=== PATIENT | female | born 1955 | race Caucasian/White ===

== ENCOUNTER 2016-10-11 19:26 | Emergency (ER) | payer OTHER ==
[~2016-10-11] VITALS: Ht 160 cm; Wt 63.0 kg
[~2016-10-11 19:26] MED LIST: ENAL5TAB98; GUAI100S6 PO; TAB-TAB
[2016-10-11 19:34] VITALS: BP 117/82; PULSE 71; RESP 18; TEMP 97.8; O2SAT 100
[2016-10-11] MEDS ORDERED: COQ-50CA2 PO (19:43)
[2016-10-11] MEDS ORDERED: FOLI800T PO (19:43)
[2016-10-11] MEDS ORDERED: TELM1TAB56 PO (19:43)
[2016-10-11] MEDS ORDERED: AMLO5TAB2 PO (19:43)
--- NOTE | 2016-10-11 19:56 | PD ---
HPI Chief Complaint: Bite or Sting Time Seen by Provider: 19:53 Travel History International Travel<30 days: No Contact w/Intl Traveler<30days: No Traveled to known affect area: No History of Present Illness HPI 61-year-old right-hand dominant female present to the ED for evaluation of dog bite to the left elbow just before presentation. Patient states that she was visiting with family members whose dog has new puppies. The dog's never been aggressive in the past. The dog is up-to-date on immunizations. Patient denies numbness, tingling, weakness, limitation of range of motion or loss of strength of the extremity. She is unsure of the date of her last tetanus immunization. [facility] Past Medical History Diminished Hearing: No Hypertension: Yes Immunizations Current: Yes Tetanus Vaccination: > 5 Years Influenza Vaccination: Yes ?: Not Past Surgical History Hysterectomy: Yes Social History Alcohol Use: Yes (SOC) Tobacco Use: No Substance Use: No Allergies-Medications (Allergen,Severity, Reaction): Coded Allergies: Sulfa (Verified Allergy, Intermediate, hives, 10/11/16) Reported Meds & Prescriptions Reported Meds & Active Scripts Active Augmentin (Amoxicillin-Clavulanate) 875-125 mg Tab 875 Mg PO BID not for use in CrCl <30 ml/min. Reported Coq-10 (Coenzyme Q10 (Ubidecarenone)) 50 Mg Cap 1 Tab PO DAILY Folic Acid 800 Mcg Tab 800 Mcg PO DAILY Amlodipine (Amlodipine Besylate) 5 Mg Tab 5 Mg PO DAILY Micardis (Telmisartan) 80 Mg Tab 80 Mg PO DAILY Review of Systems Except as stated in HPI: all other systems reviewed are Neg Physical Exam Narrative GENERAL: Well-nourished, well-developed white female in no acute distress.. SKIN: Focused skin assessment warm/dry. There is a 1.25 cm curvilinear laceration of the posterior aspect of the elbow, just distal to the joint. HEAD: Normocephalic. EYES: No scleral icterus. No injection or drainage. NECK: Supple, trachea midline. No JVD or lymphadenopathy. CARDIOVASCULAR: Regular rate and rhythm without murmurs, gallops, or rubs. RESPIRATORY: Breath sounds equal bilaterally. No accessory muscle use. GASTROINTESTINAL: Abdomen soft, non-tender, nondistended. MUSCULOSKELETAL: No cyanosis, or edema. Focused left upper extremity exam: 2+ radial pulse. Patient retains full, active, painless range of motion. Neurovascularly intact. BACK: Nontender without obvious deformity. No CVA tenderness. Data Data Last Documented VS Orders Tetanus/Diphtheria Tox Adult (Tetanus/Di (10/11/16 20:00) Amoxicil-Clavulanate (Augmentin) (10/11/16 20:00) MDM Medical Decision Making Medical Screen Exam Complete: Yes Emergency Medical Condition: Yes Differential Diagnosis Dog bite versus laceration versus contusion versus need for tetanus prophylaxis versus other Narrative Course 61-year-old right-hand dominant female present to the ED for evaluation of dog bite to the left elbow just before presentation. Patient states that she was visiting with family members whose dog has new puppies. The dog's never been aggressive in the past. The dog is up-to-date on immunizations. Patient denies numbness, tingling, weakness, limitation of range of motion or loss of strength of the extremity. She is unsure of the date of her last tetanus immunization. Vitals reviewed. Physical exam reveals a pleasant white female in no acute distress. There is a 1.25 cm curvilinear laceration of the posterior aspect of the elbow, just distal to the joint. Patient retains full, active, painless range of motion of the extremity. Neurovascularly intact. Patient's tetanus immunization was updated. Wound exploration was performed. Please see my procedure note for details. Patient was prescribed Augmentin 875 twice a day 7 days. First dose administered in the ED. She is instructed to keep the wound clean, dry, covered, take all medication as prescribed, return for worsening of symptoms, otherwise follow up with the primary care provider. She indicated understanding of the instructions and is agreeable to the care plan. The patient is stable and discharged home. Procedures Procedure Narrative Wound exploration: LOCATION: Posterior aspect left forearm, just distal to the joint LENGTH: 1.25 cm NUMBER OF STITCHES/PIERRE: 0 REPAIR: The wound was copiously irrigated and explored without evidence of foreign body, tendon injury or neurovascular injury. The wound was loosely approximated using Mastisol and Steri-Strips. A sterile dressing was applied. The patient was advised to keep the dressing clean and dry. Patient tolerated the procedure well. Diagnosis Primary Impression: Dog bite of arm Qualified Code: S41.152A - Dog bite of arm, left, initial encounter Additional Impression: Need for prophylactic vaccination with tetanus toxoid alone Referrals: Primary Care Physician Patient Instructions: Animal Bite (ED), General Instructions Additional Instructions: Rest, hydrate. Keep the wound clean, dry and covered. You may shower normally. Do not submerge the wound. After bathing pat of wound dry. Allow the wound to air dry for 10-15 minutes. Apply a thin layer of antibiotic ointment and a clean, dry dressing. Take the antibiotics as they are prescribed, even if your symptoms resolved. Utilize [id number] pain medications, as described on the label, as needed. Follow-up with your primary care provider. Return to the ED for any urgent or emergent medical condition. Med/Other Pt SpecificInfo: Prescription(s) given Scripts Amoxicillin-Clavulanate (Augmentin)875-125 mg [id number] Mg PO BID #10 TAB Ref 0 not for use in CrCl <30 ml/min. Prov:Danelle Mcmahon MD 10/11/16 Disposition: 01 DISCHARGE HOME Condition: Junie Souza Oct 11, 2016 19:56 Follow-up with your primary care provider. Return to the ED for any urgent or emergent medical condition. Med/Other Pt SpecificInfo: Prescription(s) given Scripts Amoxicillin-Clavulanate (Augmentin)875-125 mg [id number] Mg PO BID #10 TAB Ref 0 not for use in CrCl <30 ml/min. Prov:Danelle Mcmahon MD 10/11/16 Disposition: 01 DISCHARGE HOME Condition: Junie Souza Oct 11, 2016 19:56
[2016-10-11] MEDS ORDERED: TETANUS/DIPHTHERIA TOXOID ADULT 0.5 ML VIAL IM ONE (20:00)
[2016-10-11] MEDS ORDERED: AUGM875T PO (20:00)
[2016-10-11] MEDS ORDERED: AMOXICILLIN/CLAVULANATE K 875 MG TAB PO ONE (20:00)
== END 2016-10-11 20:16 | disposition home or self-care (01) ==
LOC: PHEFT 19:26
DX: S51.052A Open bite, left elbow, initial encounter (principal); Z23 Encounter for immunization; W54.0XXA Bitten by dog, initial encounter; Y93.89 Activity, other specified; Y92.009 Unspecified place in unspecified non-institutional (private) residence as the place of occurrence of the external cause; Y99.8 Other external cause status
CPT/HCPCS: 90471; 90714

== ENCOUNTER → 2016-11-18 | Outpatient (CLI) | payer OTHER ==
[~2016-11-18] MED LIST changes: +AMLO5TAB2 PO; +AUGM875T PO; +COQ-50CA2 PO; -ENAL5TAB98; +FOLI800T PO; -GUAI100S6 PO; -TAB-TAB; +TELM1TAB56 PO
[2016-11-18 16:03] LABS: BICARBONATE 24.6 MEQ/L (21.0-32.0); POTASSIUM 4.1 MEQ/L (3.5-5.1)
[2016-11-18 16:08] LABS: HDL CHOLESTEROL 91.7 MG/DL (40.0-60.0); INDIRECT BILIRUBIN 0.4 MG/DL (0.0-0.8); TOTAL BILIRUBIN ADULT 0.5 MG/DL (0.2-1.0)
== END ==
LOC: PLAB 11:56
PROVIDERS: ATTEND Family Medicine
DX: I10 Essential (primary) hypertension (principal); E78.5 Hyperlipidemia, unspecified
CPT/HCPCS: 80048; 80061; 80076

== ENCOUNTER → 2017-04-21 | Outpatient (CLI) | payer OTHER ==
[2017-04-21 13:51] LABS: BILIRUBIN, URINE NEG (NEG); BLOOD, URINE NEG (NEG); GLUCOSE,URINE NEG (NEG); KETONE, URINE NEG (NEG); NITRITE,URINE NEG (NEG); URINE COLOR LIGHT-YELLOW (YELLW/STRAW); URINE LEUKOCYTE ESTERASE NEG (NEG)
[2017-04-21 13:58] LABS: HEMATOCRIT 39.2 % (35.0-46.0); HEMOGLOBIN 13.5 GM/DL (11.6-15.3); MEAN CELL VOLUME 94.5 FL (80.0-100.0); MEAN CORPUSCULAR HEMOGLOBIN 32.5 PG (27.0-34.0); MEAN CORPUSCULAR HGB CONC 34.4 % (32.0-36.0); MEAN PLATELET VOLUME 7.3 FL (7.0-11.0); PLATELET COUNT 319 TH/MM3 (150-450); RED BLOOD COUNT 4.15 MIL/MM3 (4.00-5.30); RED CELL DISTRIBUTION WIDTH 12.8 % (11.6-17.2); WHITE BLOOD COUNT 8.1 TH/MM3 (4.0-11.0)
[2017-04-21 14:09] LABS: ALBUMIN 3.7 GM/DL (3.4-5.0); BICARBONATE 26.2 MEQ/L (21.0-32.0); CREATININE 0.55 MG/DL (0.50-1.00); DIRECT BILIRUBIN ADULT 0.1 MG/DL (0.0-0.2)
[2017-04-21 14:19] LABS: CHOLESTEROL/ HDL RATIO 3.56 RATIO; HDL CHOLESTEROL 84.4 MG/DL (40.0-60.0); INDIRECT BILIRUBIN 0.1 MG/DL (0.0-0.8); TOTAL BILIRUBIN ADULT 0.2 MG/DL (0.2-1.0); TOTAL PROTEIN 7.3 GM/DL (6.4-8.2)
== END ==
LOC: PLAB 10:51
PROVIDERS: ATTEND Family Medicine
DX: I10 Essential (primary) hypertension (principal); E78.5 Hyperlipidemia, unspecified
CPT/HCPCS: 80048; 80061; 80076; 81001; 84443; 85027